=== PATIENT | female | born 1945 | race Caucasian/White ===

== ENCOUNTER → 2020-10-11 08:56 | Outpatient (CLI) | payer MEDICARE, OTHER, SELFPAY ==
[2020-10-11 09:51] LABS: Hematocrit 37.1 % (36-46); Hemoglobin 12.3 g/dL (12.0-16.0); Mean Corpuscular HGB Conc 33.3 % (30-36); Mean Corpuscular Hemoglobin 30.6 PG (26-34); Mean Corpuscular Volume 91.8 fL (80-100); Platelet Count 225 X10^3/uL (150-400); Red Blood Cell Count 4.04 X10^6/uL (4.0-5.2); Red Cell Distribution Width 13.5 % (11.6-14.8); White Blood Cell Count 3.8 X10^3/uL (4.5-11.0)
[2020-10-11 10:08] LABS: Alanine Aminotransferase 27 IU/L (<35); Albumin Globulin Ratio 1.4 (1.0-2.8); Alkaline Phosphatase 68 U/L (38-126); Aspartate Aminotransferase 37 IU/L (14-36); BUN Creatinine Ratio 19.1 (6-22); Bilirubin Total 0.8 mg/dL (0.2-1.3); Blood Urea Nitrogen 13 mg/dL (7-17); Calcium 9.5 mg/dL (8.4-10.2); Carbon Dioxide 31 mmol/L (22-32); Chloride 104 mmol/L (98-107); Cholesterol 236 mg/dL (140-199); Estimated Glomerular Filt Rate > 60.0 mL/min (>60); Globulin 2.8 g/dL (1.7-4.1); Glucose 90 mg/dL (80-110); HDL Cholesterol 99 mg/dL (40-60); HEMOLYSIS < 15 (0-50); LDL Cholesterol Calculated 116 mg/dL (<100); Potassium 4.2 mmol/L (3.4-5.1); Sodium 135 mmol/L (137-145); Total Protein 6.8 g/dL (6.3-8.2); Triglycerides 103 mg/dL (35-150)
[2020-10-11 10:35] LABS: TSH w/ Reflex to FT4 2.99 uIU/mL (0.47-4.68)
== END ==
PROVIDERS: PCP Registered Nurse Diabetes Educator; Referring Provider Registered Nurse Diabetes Educator; Visit Provider Registered Nurse Diabetes Educator
DX: Z00.00 Encounter for general adult medical examination without abnormal findings (principal); E03.9 Hypothyroidism, unspecified; E78.5 Hyperlipidemia, unspecified
CPT/HCPCS: 36415; 80053; 80061; 84443; 85027

== ENCOUNTER → 2020-11-07 11:08 | Outpatient (CLI) | payer MEDICARE, OTHER, SELFPAY ==
--- NOTE | 2020-11-07 | DI.MG.S_ITS ---
BILATERAL DIGITAL SCREENING MAMMOGRAM 3D/2D WITH CAD: 11/07/2020 CLINICAL: Routine screening. Comparison is made to exams dated: 10/14/2019 mammogram, 03/17/2019 mammogram, and 11/17/2017 mammogram - [facility]. There are scattered fibroglandular elements in both breasts. Current study was also evaluated with a Computer Aided Detection (CAD) system. No significant masses, calcifications, or other findings are seen in either breast. There has been no significant interval change. IMPRESSION: NEGATIVE There is no mammographic evidence of malignancy. A 1 year screening mammogram is recommended. This exam was interpreted at Station ID: [id number]. NOTE: For mammograms, a report in lay terms will be sent to the patient. Approximately 15% of breast malignancies will not be visualized mammographically. In the management of a palpable breast mass, a negative mammogram must not discourage biopsy of a clinically suspicious lesion. Electronically Signed By: Derek winkler/najma:11/07/2020 12:30:44 letter sent: Normal Exam ACR BI-RADS Category 1: Negative [id number]
== END ==
PROVIDERS: PCP Registered Nurse Diabetes Educator; Referring Provider Registered Nurse Diabetes Educator; Visit Provider Registered Nurse Diabetes Educator
DX: Z12.31 Encounter for screening mammogram for malignant neoplasm of breast
CPT/HCPCS: 77063; 77067

== ENCOUNTER → 2020-12-05 10:25 | Outpatient (CLI) | payer MEDICARE, OTHER, SELFPAY | PROVIDERS: PCP Registered Nurse Diabetes Educator; Referring Provider Registered Nurse Diabetes Educator; Visit Provider Registered Nurse Diabetes Educator | DX: Z13.820 Encounter for screening for osteoporosis (principal); M85.852 Other specified disorders of bone density and structure, left thigh; Z78.0 Asymptomatic menopausal state; E07.9 Disorder of thyroid, unspecified; Z82.62 Family history of osteoporosis | CPT/HCPCS: 77080 ==

== ENCOUNTER → 2020-12-11 10:22 | Outpatient (CLI) | payer MEDICARE, OTHER, SELFPAY ==
[2020-12-13 15:16] LABS: Fecal Immunochemical Test Negative (Negative)
== END ==
PROVIDERS: PCP Registered Nurse Diabetes Educator; Referring Provider Registered Nurse Diabetes Educator; Visit Provider Registered Nurse Diabetes Educator
DX: Z12.11 Encounter for screening for malignant neoplasm of colon (principal)
CPT/HCPCS: 82274

== ENCOUNTER 2020-12-21 10:17 | Emergency (ER) | payer MEDICARE, OTHER, SELFPAY ==
[2020-12-21] VITALS (8 sets, daily range): BP systolic 148–212; BP diastolic 58–91; PULSE 60–84; RESP 14; TEMP 36.5; O2SAT 96–100; BMI 26.6
--- NOTE | 2020-12-21 10:35 | ED_ITS ---
HPI - Neuro Symptoms/Deficit General Chief Complaint: Neuro Symptoms/Deficit Stated Complaint: Possible ARTIS Time Seen by Provider: 12/21/20 10:19 Source: patient Mode of arrival: Ambulatory Limitations: no limitations History of Present Illness HPI Narrative: Patient is a 75-year-old female who is here in the emergency department today for tingling in her left hand and on the left side of her face. She states that she woke up approximately 24 hours ago with tingling in her left hand. She states that she felt like she slept on her arm wrong. She did state that the symptoms seem to come and go as the day went on. She did not have any weakness in her hand. No headache or fevers or lightheadedness or balance issues. She stated that yesterday she also noticed when she was brushing her teeth that she was having some tingling along the left side of her face. No diagnosis of high blood pressure but she does state that her blood pressure has periods of time when it seems to be elevated. Does have a history of hypothyroid and has been taking her medicines for this without any dosing changes. On Anticoagulants: No Related Data Previous Rx's Medication Instructions Recorded levothyroxine 50 mcg capsule 50 mcg PO DAILY #90 cap 11/07/20 Allergies Allergy/AdvReac Type Severity Reaction Status Date / Time phenobarbital Allergy Severe SEVERE Verified 12/21/20 10:25 HEADACHES/HALLUCINATIONS Review of Systems Constitutional Constitutional: Denies fatigue, Denies fever(s) and Denies headache(s) Eyes Eyes: Denies blurry vision, Denies change in vision and Denies diplopia ENT Ears, Nose, Mouth, and Throat: Denies dysphagia, Denies vertigo, Denies dizziness, Denies otalgia, Denies facial pain, Denies headache(s), Denies disequilibrium, Denies sinus pressure and Denies sore throat Cardiovascular Cardiovascular: Denies chest pain, Denies rapid heart rate and Denies dyspnea Respiratory Respiratory: Denies cough and Denies dyspnea Gastrointestinal Gastrointestinal: Denies abdominal pain, Denies dysphagia, Denies nausea and Denies vomiting Genitourinary Genitourinary: Denies dysuria Genitourinary: Denies dysuria Musculoskeletal Musculoskeletal: Denies arthralgias, Denies myalgias and Reports tingling Integumentary/Breasts Skin/Breast: Denies pruritus, Denies erythema and Denies rash Neurologic Neurologic: Denies vertigo, Denies dizziness, Denies headache(s), Reports tingling and Denies disequilibrium Endocrine Endocrine: Denies fatigue Hematologic/Lymphatic Hematologic/Lymphatic: Denies easy bleeding and Denies easy bruising On Anticoagulants: No Allergic/Immunologic Allergic/Immunologic: Denies urticaria Patient History Medical History (Updated 12/21/20 @ 11:48 by Dwaine Chambers DO) Dyslipidemia Hypothyroidism Social History Smoking Status: Never smoker Smoking Status: Never smoker alcohol intake frequency: holidays/special occasions only Substance Use Type: does not use Exam Initial Vital Signs Initial Vital Signs: Vital Signs Temperature 97.7 F 12/21/20 10:19 Pulse Rate 83 12/21/20 10:19 Respiratory Rate 14 12/21/20 10:19 Blood Pressure 212/91 H 12/21/20 10:19 Pulse Oximetry 99 12/21/20 10:19 Const General: cooperative, healthy appearing, comfortable and well developed Limitations: mental status not altered HENIA Head: normal to inspection and normocephalic Resp Effort & Inspection: normal respiratory effort Auscultation: clear to auscultation bilaterally Cardio Rate: regular rate Rhythm: regular rhythm GI Inspection: non-distended Palpation: soft, No firm and No tender Skin Lesions: no lesions Rashes: no rashes Neuro General: patient alert, patient awake and patient oriented x3 Cranial Nerves: CN's II-XI intact bilaterally (Subjective tingling to the left mandibular region) and sense of smell intact Cognition: normal cognition Speech: speech normal Motor: muscle tone normal throughout Extrem General: normal to inspection and capillary refill normal Psych Appearance: grossly normal and well kempt Scores GCS Callahan coma scale eye opening: Spontaneous Brianna coma scale verbal response: Orientated Callahan coma scale motor response: Obey commands Callahan coma scale total score: 15 Course Orders Ordered: ED Orders 12/21/20 10:22 EKG-12 Lead Stat 12/21/20 10:25 Complete Blood Count AUTO DIFF Stat Comprehensive Metabolic Panel Stat Lipase Stat Thyroid Stimulating Hormone Stat Troponin & CK Cardiac Panel Stat 12/21/20 10:34 CT head/brain wo con Stat Vital Signs Vital signs: Vital Signs - 8 hr 12/21/20 10:19 12/21/20 10:21 12/21/20 10:22 Temperature 97.7 F Pulse Rate 83 84 Respiratory Rate 14 Blood Pressure 212/91 H 212/91 H Pulse Oximetry 99 98 96 12/21/20 10:30 12/21/20 10:31 12/21/20 10:49 Temperature Pulse Rate 65 70 60 Respiratory Rate Blood Pressure 180/74 H 162/71 H Pulse Oximetry 98 98 96 12/21/20 11:00 Temperature Pulse Rate 60 Respiratory Rate Blood Pressure 148/58 H Pulse Oximetry 97 MDM - Neuro Symptoms/Deficit Lab Data Attestation: I reviewed the patient's lab results. Result diagrams: 12/21/20 10:25 12/21/20 10:25 Labs: Lab Results 12/21/20 12/21/20 12/21/20 Range/Units 10:25 10:25 10:25 WBC 5.2 (4.5-11.0) X10^3/uL RBC 4.44 (4.0-5.2) X10^6/uL Hgb 13.3 (12.0-16.0) g/dL Hct 40.4 (36-46) % MCV 91.0 (80-100) fL MCH 30.0 (26-34) PG MCHC 32.9 (30-36) % RDW 13.2 (11.6-14.8) % Plt Count 249 (150-400) X10^3/uL Neut % (Auto) 75.6 H (50-75) % Lymph % (Auto) 15.4 L (25-40) % Nuckolls % (Auto) 6.1 (3-14) % Eos % (Auto) 2.2 (2-4) % Baso % (Auto) 0.7 (0-2) % Neut # (Auto) 3900 (1349-4126) /uL Lymph # (Auto) 800 L (2341-7260) /uL Nuckolls # (Auto) 300 (0-900) /uL Eos # (Auto) 100 (0-450) /uL Baso # (Auto) 0 (0-100) /uL Sodium 137 (137-145) mmol/L Potassium 4.3 (3.4-5.1) mmol/L Chloride 105 (98-107) mmol/L Carbon Dioxide 30 (22-32) mmol/L BUN 12 (7-17) mg/dL Creatinine 0.67 (0.52-1.04) mg/dL Estimated GFR > 60.0 (>60) mL/min BUN/Creatinine Ratio 17.9 (6-22) Glucose 101 (80-110) mg/dL Calcium 9.6 (8.4-10.2) mg/dL Total Bilirubin 0.4 (0.2-1.3) mg/dL AST 38 H (14-36) IU/L ALT 25 (<35) IU/L Alkaline Phosphatase 69 (38-126) U/L Total Creatine Kinase 123 (30-135) U/L CK-MB (CK-2) 1.72 (<2.37) ng/mL CK-MB (CK-2) Rel Index 1.4 L (1.5-5.0) % Troponin I < 0.012 (0.01-0.034) ng/mL Total Protein 7.6 (6.3-8.2) g/dL Albumin 4.5 (3.5-5.0) g/dL Globulin 3.1 (1.7-4.1) g/dL Albumin/Globulin Ratio 1.5 (1.0-2.8) Lipase 84 (23-300) U/L TSH 2.07 (0.47-4.68) uIU/mL Imaging Data CT scan - head: Radiologist's Impression: [address] [id number] Scan ReportSigned Patient: Tricia Francis IMR#: [id number]: 6Acct:[id number]/Sex: 75 / FDate of Service: 12/21/20Loc: EDAccession Number: [id number] Procedure: CT head/brain wo con Ordering Provider: Dwaine Chambers D.O. PROCEDURE: CT HEAD/BRAIN WO CON INDICATIONS: L sided hand and face tingling TECHNIQUE: Noncontrast 4.5 mm thick angled axial sections acquired from the foramen magnum to the vertex, with coronal and sagittal reformats. For radiation dose reduction, the following was used: automated exposure control, adjustment of mA and/or kV according to patient size. COMPARISON: None. FINDINGS: Image quality: Excellent. CSF spaces: Basal cisterns are patent. No extra-axial fluid collections. The ventricles are symmetric in size and shape. Brain: No acute intracranial hemorrhage or mass effect. There is cerebral volume loss for age, with resultant ventricular and sulcal prominence. There are periventricular and deep white matter chronic small vessel ischemic changes. There is intracranial internal carotid artery atherosclerosis. Skull and face: Calvarium and visualized facial bones appear intact, without suspicious lesions. Sinuses: Visualized sinuses and mastoids are clear. IMPRESSION: No acute intracranial abnormality. Mild age related cerebral volume loss and chronic microvascular ischemic changes. Dictated by: Lang Laurent M.D. on 12/21/2020 at 10:51 Approved by: Lang Laurent M.D. on 12/21/2020 at 10:54 ECG Data Attestation: I personally reviewed and interpreted this ECG as follows: Prior ECG tracings: not available for review Interpretation: Sinus rhythm Ventricular rate is 68 Normal axis Normal QRS Normal QTC No ST T wave changes MDM Narrative Medical decision making narrative: Patient's symptoms today seem to be isolated as tingling along the left side of her jaw and also around her left thumb. The rest of her neurologic exam is unremarkable. I have low suspicion for CVA. I do have low suspicion for TIA. If this is worse case scenario and was a TIA her ABCD2 score is low risk. I feel we can hold on further workup for now and have patient follow-up with her primary doctor for further evaluation. I did discuss this with the patient. We did discuss return precautions. She expressed understanding and agreement. Discharge Plan Departure Patient Disposition: Home Clinical Impression: Facial paresthesia, Hand paresthesia Instructions: DI for Numbness/Tingling Activity Restrictions/Additional Instructions: Continue all of your medications as directed. Also recommend that you start taking a daily aspirin until your instructed to stop by your primary provider. I recommend that today you contact your primary provider for a follow-up and to discuss the indications for further workup. Return to the emergency department for any new or worsening symptoms Prescriptions: No Action levothyroxine 50 mcg capsule 50 mcg PO DAILY Qty: 90 RF: 3 Referrals: Godfrey Fallon ARNP [Primary Care Provider] -
[2020-12-21 10:38] LABS: Add Manual Diff / Slide Review NO; Basophils Absolute Auto 0 /uL (0-100); Basophils Percent Auto 0.7 % (0-2); Eosinophils Absolute Auto 100 /uL (0-450); Eosinophils Percent Auto 2.2 % (2-4); Hematocrit 40.4 % (36-46); Hemoglobin 13.3 g/dL (12.0-16.0); Lymphocytes Absolute Auto 800 /uL (1100-4500); Lymphocytes Percent Auto 15.4 % (25-40); Mean Corpuscular HGB Conc 32.9 % (30-36); Monocytes Absolute Auto 300 /uL (0-900); Monocytes Percent Auto 6.1 % (3-14); Neutrophils Absolute Auto 3900 /uL (1500-7000); Neutrophils Percent Auto 75.6 % (50-75); Platelet Count 249 X10^3/uL (150-400); Red Blood Cell Count 4.44 X10^6/uL (4.0-5.2); Red Cell Distribution Width 13.2 % (11.6-14.8); White Blood Cell Count 5.2 X10^3/uL (4.5-11.0)
[2020-12-21 10:53] LABS: Alanine Aminotransferase 25 IU/L (<35); Albumin 4.5 g/dL (3.5-5.0); Albumin Globulin Ratio 1.5 (1.0-2.8); Alkaline Phosphatase 69 U/L (38-126); Aspartate Aminotransferase 38 IU/L (14-36); BUN Creatinine Ratio 17.9 (6-22); Bilirubin Total 0.4 mg/dL (0.2-1.3); Blood Urea Nitrogen 12 mg/dL (7-17); Calcium 9.6 mg/dL (8.4-10.2); Carbon Dioxide 30 mmol/L (22-32); Chloride 105 mmol/L (98-107); Creatine Kinase 123 U/L (30-135); Estimated Glomerular Filt Rate > 60.0 mL/min (>60); Globulin 3.1 g/dL (1.7-4.1); Glucose 101 mg/dL (80-110); HEMOLYSIS < 15 (0-50); Lipase 84 U/L (23-300); Potassium 4.3 mmol/L (3.4-5.1); Sodium 137 mmol/L (137-145); Total Protein 7.6 g/dL (6.3-8.2)
[2020-12-21 11:03] LABS: Troponin I < 0.012 ng/mL (0.01-0.034)
[2020-12-21 11:07] LABS: CKMB % Relative Index 1.4 % (1.5-5.0); Creatine Kinase MB 1.72 ng/mL (<2.37)
[2020-12-21 11:30] LABS: Thyroid Stimulating Hormone 2.07 uIU/mL (0.47-4.68)
== END 2020-12-21 11:56 | disposition home or self-care (01) ==
LOC: ED 11:56
PROVIDERS: Emergency Provider Emergency Medicine; PCP Registered Nurse Diabetes Educator
DX: R20.2 Paresthesia of skin (principal); E03.9 Hypothyroidism, unspecified; E78.5 Hyperlipidemia, unspecified; R07.9 Chest pain, unspecified
CPT/HCPCS: 36415; 70450; 80053; 82550; 82553; 83690; 84443; 84484; 85025; 93005; 93010; 99284

== ENCOUNTER → 2020-12-28 08:52 | Outpatient (CLI) | payer MEDICARE, OTHER, SELFPAY ==
[2020-12-28 09:50] LABS: Add Manual Diff / Slide Review NO; Basophils Absolute Auto 100 /uL (0-100); Basophils Percent Auto 1.4 % (0-2); Eosinophils Absolute Auto 200 /uL (0-450); Hematocrit 38.1 % (36-46); Hemoglobin 12.4 g/dL (12.0-16.0); Lymphocytes Absolute Auto 1100 /uL (1100-4500); Lymphocytes Percent Auto 29.3 % (25-40); Mean Corpuscular HGB Conc 32.6 % (30-36); Mean Corpuscular Hemoglobin 29.6 PG (26-34); Mean Corpuscular Volume 90.8 fL (80-100); Monocytes Absolute Auto 300 /uL (0-900); Monocytes Percent Auto 7.2 % (3-14); Neutrophils Absolute Auto 2100 /uL (1500-7000); Neutrophils Percent Auto 56.1 % (50-75); Platelet Count 246 X10^3/uL (150-400); Red Blood Cell Count 4.19 X10^6/uL (4.0-5.2); Red Cell Distribution Width 13.2 % (11.6-14.8); White Blood Cell Count 3.7 X10^3/uL (4.5-11.0)
[2020-12-28 10:16] LABS: Alanine Aminotransferase 27 IU/L (<35); Albumin 4.1 g/dL (3.5-5.0); Albumin Globulin Ratio 1.5 (1.0-2.8); Alkaline Phosphatase 62 U/L (38-126); Aspartate Aminotransferase 35 IU/L (14-36); Bilirubin Total 0.4 mg/dL (0.2-1.3); Bilirubin Unconjugated 0.6 mg/dL (0.0-1.1); Globulin 2.8 g/dL (1.7-4.1); HEMOLYSIS < 15 (0-50); Total Protein 6.9 g/dL (6.3-8.2)
== END ==
PROVIDERS: PCP Registered Nurse Diabetes Educator; Referring Provider Registered Nurse Diabetes Educator; Visit Provider Registered Nurse Diabetes Educator
DX: D72.819 Decreased white blood cell count, unspecified (principal); D74.8 Other methemoglobinemias; R74.8 Abnormal levels of other serum enzymes
CPT/HCPCS: 36415; 80076; 85025

== ENCOUNTER → 2021-01-10 12:36 | Outpatient (CLI) | payer MEDICARE, OTHER, SELFPAY ==
--- NOTE | 2021-01-10 12:39 | DI.US.S_ITS ---
PROCEDURE: US CAROTID DOPPLER BI INDICATIONS: LEFT FACIAL NUMBNESS TECHNIQUE: Color and pulse Doppler interrogation was performed of both carotid systems, with image documentation and velocity measurements. COMPARISON: None. FINDINGS: Stenosis calculations are based on SRU (Society of Radiologists in Ultrasound) criteria. The flow velocities and the arterial waveforms are normal within both carotid arterial systems. The estimated degree of internal carotid artery stenosis is less than 50%. Antegrade flow is confirmed within both vertebral arteries. IMPRESSION: No hemodynamically significant stenosis is seen. Dictated by: Denny August M.D. on 01/10/2021 at 12:01 Approved by: Denny August M.D. on 01/10/2021 at 12:03
--- NOTE | 2021-01-10 12:39 | DI.MRI.S_ITS ---
PROCEDURE: MR STROKE Pre- and post-contrast brain MRI, non-contrast brain MR angiogram, pre- and postcontrast neck MR angiogram INDICATIONS: Anesthesia of skin,Hyperlipidemia, unspecified TECHNIQUE: Brain: Noncontrast axial T1 spin echo, axial T2 fast spin echo, sagittal and axial FLAIR, coronal T2 fast spin echo, axial gradient echo, axial diffusion and ADC through the brain. After the administration of contrast, axial 3D VIBE of the cranial vasculature and brain. Brain MRA: Non-contrast 3-D time of flight MR angiogram, with multiple etafetm-tnznzxxom-eevumhtlrc (MIP) reformats performed. Neck MRA: Axial and sagittal TruFISP through the neck. Coronal dynamic MR angiogram during administration of contrast in the arterial and venous phases, with 3-dimenstional wncgyex-sjeqirite-sphkwhhdln (MIP) reformats constructed from subtraction images. COMPARISON: [facility], US, US CAROTID DOPPLER BI, 01/10/2021, 12:47. [facility], CT, CT HEAD/BRAIN WO CON, 12/21/2020, 10:41. FINDINGS: Image quality: Excellent. BRAIN: CSF spaces: Ventricles are normal in size and shape. Basal cisterns are patent. No extra-axial fluid collections. Brain: No intracranial bleeds or mass effects. Saenz-white matter interface is normal. Diffusion weighted images show no acute ischemic insults. Brainstem appears normal. Brain parenchymal volume loss is seen. Chronic small vessel ischemic change can be seen. There is an apparent remote infarction involving the deep white matter of the left frontal lobe, as on series 20 images 15 and 16. Normal intravascular flow voids are present. No abnormal intracranial enhancement. Relatively prominent perivascular spaces are noted. Skull and face: Calvarial marrow signal is normal. Orbits appear normal. Sinuses: Sinuses and mastoids are clear. BRAIN MR ANGIOGRAM: Anterior circulation: Intracranial internal carotid arteries are normal in size and enhancement. The flow within the paired anterior cerebral arteries is normal and symmetric. The flow within the middle cerebral arteries is normal and symmetric. The anterior communicating artery is only faintly seen. No stenoses, occlusions, or aneurysms. Posterior circulation: The visualized portions of the vertebral arteries demonstrate normal caliber, and join to form a normal appearing basilar artery. The flow within the posterior cerebral arteries is normal and symmetric. No stenoses, occlusions, or aneurysms. NECK MR ANGIOGRAM: Carotids: Great vessels demonstrate a conventional anatomy as they arise from the aortic arch. The origins of the common carotid arteries appear patent. The calibers and courses of both common carotid arteries are normal. The bifurcation regions appear normal bilaterally. The internal carotid arteries demonstrate normal caliber. There is medialization seen of both internal carotid arteries, as on series 34 image 1. Posterior circulation: The origins of the vertebral arteries appear patent. More superior portions of both vertebral arteries demonstrate normal course and caliber, and join to form a normal appearing basilar artery. Miscellaneous: Subclavian arteries appear patent. Pre-contrast images through the neck show no soft tissue abnormalities. IMPRESSION: BRAIN MRI: No findings of acute or subacute infarction can be seen. Apparent small remote infarction involving the deep white matter of the left frontal lobe. No masses or abnormal enhancement can be seen. Note is made of age-appropriate brain parenchymal volume loss and chronic small vessel ischemic changes. BRAIN MR ANGIOGRAM: No significant intracranial arterial abnormality is seen. NECK MR ANGIOGRAM: Within the arteries of the neck, no hemodynamically significant stenosis can be seen. Incidental note is made of medialization of the internal carotid arteries. Dictated by: Denny August M.D. on 01/10/2021 at 13:01 Approved by: Denny August M.D. on 01/10/2021 at 13:05
== END ==
PROVIDERS: PCP Registered Nurse Diabetes Educator; Referring Provider Registered Nurse Diabetes Educator; Visit Provider Registered Nurse Diabetes Educator
DX: R20.0 Anesthesia of skin (principal); E78.5 Hyperlipidemia, unspecified; R20.2 Paresthesia of skin
CPT/HCPCS: 70548; 70553; 93880

== ENCOUNTER → 2021-02-22 12:59 | Outpatient (CLI) | payer MEDICARE, OTHER, SELFPAY ==
--- NOTE | 2021-02-22 13:04 | DIET.PN ---
Dietary Progress Note Assessment: 75y F attending nutrition visit for help with dietary strategies to manage her HLD. Imaging shows previous white matter infarct c reccs for asprin and statin therapy to get LDL <70. Pt would like to try dietary changes first to see if she can meet the goal. Pt lives on [address], is mostly plant-based and gluten-free, will eat salmon or anything served at a friends home, but avoids most dairy and meat. Pt has restless leg syndrome (calves and bottoms of feet) difficulty getting comfortable, which causes her to lose sleep. HT: 5'7 WT: 174# UBW: 170-250# BMI: 27.2 Pt has hx of [place] dieting and has been up to 250# several times, has tried: Babita, Asha Iniguez, Nutrisystem, Arbmila. Labs: TC 236 H, LDL 116 H, HDL 99 Usual Day: wakes 6am usually coffee c oatmilk gets tired of oatmeal c bananas and blueberries, cinnamon, coriander powder, flaxseeds, nut butter sometimes fried egg c avocado gf toast c nut butter Lunch: bowl of soup, 1/2 GF vegetarian pizza from [employer] snacker: almonds and cashews c raisins Dinners: salmon c sweet potato, green salad or salad dressings tries to avoid snacking after dinner chamomile tea in evenings before bed Pt uses earth balance butter and eats cashew based vegan cheeses. sporadic use of wine and gin and tonics (1 gin and tonic per week, 1 glass wine often turns into 2) Physical Activity: pt walks quite a bit, 4mi most days per week with her dog Pt has big garden but does not know how to cook many of the things she grows such as beet greens. Nutrition Diagnosis: altered nutrition related laboratory values (TC, LDL) r/t inadequate intake soluble fiber aeb TC 236 H, LDL 116 H, pt has imaging showing deep white matter infarct, pt requesting information on improving diet to manage HLD. Interventions: 1. To support pts weight stability and assist her in finding regular dietary pattern, introduced pt to hunger scale. Pt will eat at 3 and stop at 8 and will reflect on times she eats at a 5 to find non-food ways to satisfy the situation. 2. To lower LDL cholesterol, pt will continue to follow a mostly plant-based diet avoiding most animal products including meat, dairy, and eggs, pt will continue to consume salmon. 3. To lower LDL cholesterol, educated pt on role of soluble fiber in HLD management. Using handouts, identified high soluble fiber foods pt enjoys and collaborated on ways to fit these into her daily diet. Pt will consume bryanna seeds in oatmeal, hummus c raw veggies, lentil soup, and use beans more often as a protein source rather than beyond burgers with a goal of 25-30g/d. Pt will log her intake for a few days to identify her current fiber levels in order to see where she can add more and how much. 4. Provided pt copy of Dietary Interventions for HLD pamphlet for her review. Diet Order: Low Saturated Fat/High Soluble Fiber diet EER: 25-30g Fiber daily
== END ==
PROVIDERS: PCP Registered Nurse Diabetes Educator; Referring Provider Registered Nurse Diabetes Educator; Visit Provider Registered Nurse Diabetes Educator
DX: E78.5 Hyperlipidemia, unspecified (principal); Z71.3 Dietary counseling and surveillance; Z68.27 Body mass index [BMI] 27.0-27.9, adult
CPT/HCPCS: 97802

== ENCOUNTER → 2022-02-17 09:07 | Outpatient (CLI) | payer MEDICARE, OTHER, SELFPAY ==
--- NOTE | 2022-02-17 | DI.RAD.S_ITS ---
PROCEDURE: XR KNEE RT 3V INDICATIONS: Pain in right knee TECHNIQUE: 3 views of the knee were acquired. COMPARISON: None. FINDINGS: Bones: No fractures or dislocations. No suspicious bony lesions. Moderate medial and patellofemoral compartment osteoarthritis. Mild lateral compartment osteoarthritis. Soft tissues: No joint effusion. No suspicious soft tissue calcifications. IMPRESSION: Right knee tricompartmental osteoarthritis. Dictated by: Myesha Hamm MD, PhD on 02/17/2022 at 14:47 Approved by: Myesha Hamm MD, PhD on 02/17/2022 at 14:49
== END ==
PROVIDERS: PCP Physician Assistant; Referring Provider Physician Assistant; Visit Provider Physician Assistant
DX: M25.561 Pain in right knee (principal); M17.11 Unilateral primary osteoarthritis, right knee
CPT/HCPCS: 73562

== ENCOUNTER 2022-12-30 18:07 | Emergency (ER) | payer MEDICARE, OTHER, SELFPAY ==
[2022-12-30 18:37] VITALS: BP 186/90; PULSE 70; RESP 18; TEMP 36.2; O2SAT 100; BMI 27.1
--- NOTE | 2022-12-30 18:47 | DI.RAD.S_ITS ---
PROCEDURE: XR CHEST 1V INDICATIONS: chest pain TECHNIQUE: One view of the chest was acquired. COMPARISON: None. FINDINGS: Surgical changes and devices: None. Lungs and pleura: Lungs are clear. Lungs are lucent suggesting COPD. No pleural effusions or pneumothorax. Mediastinum: Mediastinal contours appear normal. Heart size is normal. Bones and chest wall: No suspicious bony lesions. Overlying soft tissues appear unremarkable. IMPRESSION: No acute cardiopulmonary disease. Dictated by: Henry Smith M.D. on 12/30/2022 at 19:58 Approved by: Henry Smith M.D. on 12/30/2022 at 19:58
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
[2022-12-30 19:59] LABS: Add Manual Diff / Slide Review NO; Basophils Absolute Auto 0 /uL (0-100); Basophils Percent Auto 0.7 % (0-2); Eosinophils Absolute Auto 100 /uL (0-450); Eosinophils Percent Auto 2.3 % (2-4); Hematocrit 36.7 % (36-46); Hemoglobin 12.3 g/dL (12.0-16.0); Lymphocytes Absolute Auto 1200 /uL (1100-4500); Lymphocytes Percent Auto 26.5 % (25-40); Mean Corpuscular HGB Conc 33.6 % (30-36); Mean Corpuscular Hemoglobin 30.6 PG (26-34); Mean Corpuscular Volume 90.8 fL (80-100); Monocytes Absolute Auto 300 /uL (0-900); Monocytes Percent Auto 6.5 % (3-14); Neutrophils Absolute Auto 3000 /uL (1500-7000); Platelet Count 226 X10^3/uL (150-400); Red Blood Cell Count 4.04 X10^6/uL (4.0-5.2); Red Cell Distribution Width 13.4 % (11.6-14.8); White Blood Cell Count 4.6 X10^3/uL (4.5-11.0)
[2022-12-30 20:02] LABS: INR 0.9 (0.9-1.3); Prothrombin Time 10.4 SECONDS (10.1-12.7)
[2022-12-30 20:04] LABS: PTT Partial Thromboplastin Tim 29 SECONDS (26-36)
[2022-12-30 20:10] LABS: Alanine Aminotransferase 28 IU/L (<35); Albumin 4.3 g/dL (3.5-5.0); Albumin Globulin Ratio 1.4 (1.0-2.8); Alkaline Phosphatase 66 U/L (38-126); Aspartate Aminotransferase 39 IU/L (14-36); BUN Creatinine Ratio 30.8 (6-22); Bilirubin Total 0.3 mg/dL (0.2-1.3); Blood Urea Nitrogen 20 mg/dL (7-17); Calcium 9.7 mg/dL (8.4-10.2); Carbon Dioxide 25 mmol/L (22-32); Chloride 102 mmol/L (98-107); Creatine Kinase 115 U/L (30-135); Estimated Glomerular Filt Rate > 60 mL/min (>60); Globulin 3.1 g/dL (1.7-4.1); Glucose 100 mg/dL (80-110); HEMOLYSIS < 15 (0-50); Lipase 131 U/L (23-300); Magnesium 2.1 mg/dL (1.6-2.3); Potassium 4.1 mmol/L (3.4-5.1); Sodium 133 mmol/L (137-145); Total Protein 7.4 g/dL (6.3-8.2)
[2022-12-30 20:22] LABS: Troponin I < 0.012 ng/mL (0.01-0.034)
[2022-12-30 20:25] LABS: CKMB % Relative Index 1.4 % (1.5-5.0)
[2022-12-30 20:27] LABS: Free T4, Direct Thyroxine 1.25 ng/dL (0.78-2.19)
--- NOTE | 2022-12-30 20:36 | ED.ANXIETY ---
HPI - Anxiety General Chief Complaint: Anxiety Stated Complaint: anxiety issue, tigh of ches, high bp Time Seen by Provider: 12/30/22 19:26 Source: patient Mode of arrival: Family Vehicle History of Present Illness HPI narrative: 77-year-old female nonsmoker with history of hypertension and hypothyroid presents for evaluation of elevated BP and feeling quite anxious. She has had significant stressors at home due to working on her computer on projects for friends and family and is feeling overwhelmed. She denies suicidal or homicidal ideation. She has felt some trouble sleeping and has had some episodes of chest pain. She noted her BP to be elevated at home yesterday. She is here with a friend wishing to be evaluated. She has good support and has been in touch with her primary care provider recently prescribed propranolol which she has the pharmacy but has yet to take. She denies nausea, vomiting or diarrhea. She denies any current chest pain or shortness of breath. She is not dizzy nor weak or lightheaded Related Data Home Medications Medication Instructions Recorded Confirmed losartan 25 mg tablet 25 mg PO DAILY 12/30/22 12/30/22 propranolol 10 mg tablet 10 mg PO 1XD 12/30/22 12/30/22 Previous Rx's Medication Instructions Recorded levothyroxine 50 mcg capsule 50 mcg PO DAILY #90 caps 01/03/21 Allergies Allergy/AdvReac Type Severity Reaction Status Date / Time phenobarbital Allergy Severe SEVERE Verified 12/30/22 18:44 HEADACHES/HALLUCINATIONS Review of Systems Review of Systems Narrative: GENERAL: See HPI HEENT: Denies sinus pain, ear pain, sore throat, difficulty swallowing, dizziness. RESPIRATORY: Denies dyspnea, cough, wheezing, hemoptysis, sputum. CARDIOVASCULAR: See HPI GASTROINTESTINAL: Denies nausea, vomiting, abdominal pain, diarrhea, constipation, melena. : Denies dysuria, frequency, incontinence, hematuria, urinary retention. MUSCULOSKELETAL: denies weakness, joint pain, or bony pain SKIN: Denies rash, skin lesions, or other NEUROLOGIC: Denies weakness, headache, numbness, change in speech, confusion, seizures, incoordination. PSYCHIATRIC: See HPI. 12 point review of systems is negative except for those stated above Patient History Medical History Dyslipidemia History of CVA (cerebrovascular accident) Hypothyroidism Osteopenia Social History Smoking Status: Never smoker Smoking Status: Never smoker alcohol intake frequency: a few times a month Substance Use Type: does not use Exam Narrative Exam Narrative: GENERAL: [77] year old patient appears stated age. Well-developed patient, in mild distress. HEAD: Atraumatic. Normocephalic. EYES: Pupils equal round and reactive. Extraocular motions intact. No scleral icterus. No injection or drainage. ENT: Nose without bleeding, purulent drainage. Throat without erythema, tonsillar hypertrophy or exudate. Airway patent. NECK: Trachea midline. Non tender CARDIOVASCULAR: Regular rate and rhythm without murmurs, gallops, or rubs. RESPIRATORY: Clear to auscultation. Breath sounds equal bilaterally. No wheezes, rales, or rhonchi. GASTROINTESTINAL: Abdomen soft, non-tender, nondistended. EXTREMITIES: No edema or joint tenderness. BACK: Nontender without deformity or crepitance. No flank tenderness. NEURO: AOx3. SKIN: No rash or erythema of visible areas Initial Vital Signs Initial Vital Signs: Vital Signs Temperature 97.1 F L 12/30/22 18:37 Pulse Rate 70 12/30/22 18:37 Respiratory Rate 18 12/30/22 18:37 Blood Pressure 186/90 H 12/30/22 18:37 Pulse Oximetry 100 12/30/22 18:37 Oxygen Delivery Method 12/30/22 18:37 Scores HEART Score Heart Score history: Slightly Suspicious Heart Score EKG: Normal Heart Score Age: > or = 65 years old Heart Score risk factors: 1-2 risk factors Heart Score troponin: < or = to normal limit Heart Score Total: 3 Course Orders Ordered: ED Orders 12/30/22 18:47 Consult to ECHOMETER ENGINEER - [employer] General Sales Manager Stat XR chest 1V Stat EKG-12 Lead Stat 12/30/22 19:13 Complete Blood Count AUTO DIFF Stat Comprehensive Metabolic Panel Stat Free T4, Direct Thyroxine Stat Lipase Stat Magnesium Stat Partial Thromboplastin Time Stat Prothrombin Time INR Stat TSH [Thyroid Stimulating Hormone] Stat Troponin & CK Cardiac Panel Stat Discontinued Medications Aspirin (Aspirin 81 Mg Chew Tab) 324 mg PO NOW ONE Stop: 12/30/22 18:48 Last Admin: 12/30/22 19:38 Dose: Not Given Documented By: SAMI Vital Signs Vital signs: Vital Signs - 8 hr 12/30/22 18:37 Temperature 97.1 F L Pulse Rate 70 Respiratory Rate 18 Blood Pressure 186/90 H Pulse Oximetry 100 Oxygen Delivery Method Room Air MDM - Anxiety Lab Data 12/30/22 19:13 12/30/22 19:13 Labs: Lab Results 12/30/22 12/30/22 12/30/22 Range/Units 19:13 19:13 19:13 WBC 4.6 (4.5-11.0) X10^3/uL RBC 4.04 (4.0-5.2) X10^6/uL Hgb 12.3 (12.0-16.0) g/dL Hct 36.7 (36-46) % MCV 90.8 (80-100) fL MCH 30.6 (26-34) PG MCHC 33.6 (30-36) % RDW 13.4 (11.6-14.8) % Plt Count 226 (150-400) X10^3/uL Neut % (Auto) 64.0 (50-75) % Lymph % (Auto) 26.5 (25-40) % Carlton % (Auto) 6.5 (3-14) % Eos % (Auto) 2.3 (2-4) % Baso % (Auto) 0.7 (0-2) % Neut # (Auto) 3000 (2058-5541) /uL Lymph # (Auto) 1200 (0192-3267) /uL Carlton # (Auto) 300 (0-900) /uL Eos # (Auto) 100 (0-450) /uL Baso # (Auto) 0 (0-100) /uL PT 10.4 (10.1-12.7) SECONDS INR 0.9 (0.9-1.3) APTT 29 (26-36) SECONDS Sodium 133 L (137-145) mmol/L Potassium 4.1 (3.4-5.1) mmol/L Chloride 102 (98-107) mmol/L Carbon Dioxide 25 (22-32) mmol/L BUN 20 H (7-17) mg/dL Creatinine 0.65 (0.52-1.04) mg/dL Estimated GFR > 60 (>60) mL/min BUN/Creatinine Ratio 30.8 H (6-22) Glucose 100 (80-110) mg/dL Calcium 9.7 (8.4-10.2) mg/dL Magnesium 2.1 (1.6-2.3) mg/dL Total Bilirubin 0.3 (0.2-1.3) mg/dL AST 39 H (14-36) IU/L ALT 28 (<35) IU/L Alkaline Phosphatase 66 (38-126) U/L Total Creatine Kinase 115 (30-135) U/L CK-MB (CK-2) 1.60 (<2.37) ng/mL CK-MB (CK-2) Rel Index 1.4 L (1.5-5.0) % Troponin I < 0.012 (0.01-0.034) ng/mL Total Protein 7.4 (6.3-8.2) g/dL Albumin 4.3 (3.5-5.0) g/dL Globulin 3.1 (1.7-4.1) g/dL Albumin/Globulin Ratio 1.4 (1.0-2.8) Lipase 131 (23-300) U/L TSH (0.47-4.68) uIU/mL Free T4 (0.78-2.19) ng/dL 12/30/22 Range/Units 19:13 WBC (4.5-11.0) X10^3/uL RBC (4.0-5.2) X10^6/uL Hgb (12.0-16.0) g/dL Hct (36-46) % MCV (80-100) fL MCH (26-34) PG MCHC (30-36) % RDW (11.6-14.8) % Plt Count (150-400) X10^3/uL Neut % (Auto) (50-75) % Lymph % (Auto) (25-40) % Carlton % (Auto) (3-14) % Eos % (Auto) (2-4) % Baso % (Auto) (0-2) % Neut # (Auto) (3194-9387) /uL Lymph # (Auto) (3835-9909) /uL Carlton # (Auto) (0-900) /uL Eos # (Auto) (0-450) /uL Baso # (Auto) (0-100) /uL PT (10.1-12.7) SECONDS INR (0.9-1.3) APTT (26-36) SECONDS Sodium (137-145) mmol/L Potassium (3.4-5.1) mmol/L Chloride (98-107) mmol/L Carbon Dioxide (22-32) mmol/L BUN (7-17) mg/dL Creatinine (0.52-1.04) mg/dL Estimated GFR (>60) mL/min BUN/Creatinine Ratio (6-22) Glucose (80-110) mg/dL Calcium (8.4-10.2) mg/dL Magnesium (1.6-2.3) mg/dL Total Bilirubin (0.2-1.3) mg/dL AST (14-36) IU/L ALT (<35) IU/L Alkaline Phosphatase (38-126) U/L Total Creatine Kinase (30-135) U/L CK-MB (CK-2) (<2.37) ng/mL CK-MB (CK-2) Rel Index (1.5-5.0) % Troponin I (0.01-0.034) ng/mL Total Protein (6.3-8.2) g/dL Albumin (3.5-5.0) g/dL Globulin (1.7-4.1) g/dL Albumin/Globulin Ratio (1.0-2.8) Lipase (23-300) U/L TSH 1.61 (0.47-4.68) uIU/mL Free T4 1.25 (0.78-2.19) ng/dL MDM Narrative Medical decision making narrative: CC: 77F feeling anxious, overwhelmed at home. No SI/HI Complicating co-morbidities: age, HTN Data collected from: patient Medical records reviewed: multiple prior PCP visits Differential considered, but not limited to: anxiety, electrolyte problem, thyroid abnormality, vs. other Exam documented above, pertinent findings include: AOx3, no neuro findings. HRRR, LCTAB Lab Test results independently reviewed as above. Pertinent findings: Independently reviewed EKG as above (NSR rate 62, no ectopy, ST elevations/depressions, T wave abnormalities) Imaging studies independently reviewed: NAP Scores Used: HEART 3 Discussion: 77-year-old female feeling anxious without suicidal or homicidal ideation can contract for safety has good support. History and physical exam are reassuring no lab abnormalities, EKG nonischemic and chest x-ray clear. Patient did have some elevated blood pressure here but was asymptomatic, she has a prescription for propranolol waiting which she intends to take. She is given extensive return precautions, questions answered to her apparent satisfaction Disposition: see below, along with detailed discharge instructions that have been reviewed with patient as well as indications for ED re-evaluation and additional outpatient follow up Discharge Plan Departure Patient Disposition: Home Clinical Impression: Hypertension, Anxiety Instructions: High Blood Pressure, DI for Anxiety -- Adult Activity Restrictions/Additional Instructions: *You have been diagnosed with [anxiety and hypertension. As we discussed your history and physical exam are reassuring, labs show no significant abnormalities and your EKG has no significant findings.] *What to do: *Please continue to take your regular medications as directed. *Please follow up with your primary care provider in 2-3 days, call for an appointment. Let them know you were seen in the Emergency Department and that we ask that you be seen in follow up. We will electronically transmit a record of today's note if your PCP is in our system *If you do not have a primary care provider please contact the [facility] Resource line at [phone]. They will ask some questions about your medical history and help get you set up with a doctor in the community. *Return to Emergency Department if you should have any new, worsening or concerning symptoms, such as [fever greater than 101 F, shaking chills, worsening pain, persistent vomiting or other bothersome symptoms] Prescriptions: No Action levothyroxine 50 mcg capsule 50 mcg PO DAILY Qty: 90 3RF losartan 25 mg tablet 25 mg PO DAILY Label Comments: Take 1 tablet (25 mg) by mouth daily. propranolol 10 mg tablet 10 mg PO 1XD Label Comments: has not picked script yet Referrals: Ines Bee PA-C [Primary Care Provider] - Stand Alone Forms: Patient Portal/API
[2022-12-30 20:40] LABS: Thyroid Stimulating Hormone 1.61 uIU/mL (0.47-4.68)
--- NOTE | 2022-12-30 20:44 | PC.NURSE ---
Dr. Caruso discontinued orders. Pt declined to wait for formal discharge instructions. Dr. Caruso gave verbal instructions. Anxious to get to [place]. [place]/warm/dry. Denies discomfort. States she feels improved. Home w/ friend driving.
== END 2022-12-30 20:46 | disposition home or self-care (01) ==
PROVIDERS: Emergency Provider Emergency Medicine; PCP Physician Assistant
DX: I10 Essential (primary) hypertension (principal); F41.9 Anxiety disorder, unspecified; R07.9 Chest pain, unspecified
CPT/HCPCS: 36415; 71045; 80053; 82550; 82553; 83690; 83735; 84439; 84443; 84484; 85025; 85610; 85730; 93005; 99283; 99284

== ENCOUNTER → 2023-02-24 11:32 | Outpatient (CLI) | payer MEDICARE, OTHER, SELFPAY ==
--- NOTE | 2023-02-24 11:34 | DI.MG.S_ITS ---
BILATERAL DIGITAL SCREENING MAMMOGRAM 3D/2D WITH CAD: 02/24/2023 CLINICAL: Routine screening. Comparison is made to exams dated: 11/07/2020 mammogram - [facility], 03/17/2019 mammogram, and 11/17/2017 mammogram - [facility]. There are scattered areas of fibroglandular density in both breasts (category b / 25%-50% glandular tissue). Current study was also evaluated with a Computer Aided Detection (CAD) system. No significant masses, calcifications, or other findings are seen in either breast. There has been no significant interval change. IMPRESSION: NEGATIVE There is no mammographic evidence of malignancy. A 1 year screening mammogram is recommended. Based on the Tyrer Cuzick model (a risk assessment model) the patient's lifetime risk is 3.3% and her 10 year risk is 0.0%. According to the ACR, ACS, and NCCN guidelines, an annual breast MRI exam along with mammogram is recommended if the patient's lifetime risk is 20% or greater. This exam was interpreted at Station ID: [id number]. NOTE: For mammograms, a report in lay terms will be sent to the patient. Approximately 15% of breast malignancies will not be visualized mammographically. In the management of a palpable breast mass, a negative mammogram must not discourage biopsy of a clinically suspicious lesion. Electronically Signed By: Leighton ramirez/najma:02/24/2023 13:14:32 letter sent: Normal Exam ACR BI-RADS Category 1: Negative 3341F
--- NOTE | 2023-02-24 12:07 | DI.DEXA.S_ITS ---
Referring Provider: ANNABELLE HERZOG Study: Bone densitometry was performed. Exam Date: February 24, 2023 Accession number: [id number] Bone Density: Region BMD T-score Z-score Classification AP Spine(L1-L4) 1.121 0.7 3.2 Normal Femoral Neck (Left) 0.669 -1.6 0.5 Osteopenia Total Hip (Left) 0.687 -2.1 -0.2 Osteopenia Femoral Neck (Right) 0.737 -1.0 1.1 Normal Total Hip (Right) 0.712 -1.9 0.0 Osteopenia Total Hip Mean 0.700 -2.0 -0.1 Osteopenia World Health Organization criteria for BMD impression classify patients as: Normal (T-score at or above -1.0), Osteopenia (T-score between -1.0 and -2.5), or Osteoporosis (T-score at or below -2.5). 10-year Fracture Risk(1): Major Osteoporotic Fracture 12% Hip Fracture 2.7% Reported Risk Factors: [place] (), Neck BMD=0.669, BMI=29.1 (1) FRAX(R) Version 3.08. Fracture probability calculated for an untreated patient. Fracture probability may be lower if the patient has received treatment. Previous Exams: -- Region Exam Age BMD T-score BMD Change BMD Change Date g/cm2 vs Baseline vs Previous -- AP Spine (L1-L4) 02/24/2023 77 1.121 0.7 0.020 (1.8%)# 0.020 (1.8%)# 12/05/2020 75 1.101 0.5 Total Hip(Left) 02/24/2023 77 0.687 -2.1 -0.005 (-0.7%)# -0.005 (-0.7%)# 12/05/2020 75 0.692 -2.1 Total Hip(Right) 02/24/2023 77 0.712 -1.9 -0.014 (-1.9%)# -0.014 (-1.9%)# 12/05/2020 75 0.726 -1.8 -- *Denotes significance at 95% confidence level, LSC for AP Spine = 0.022 g/cm2, LSC for Total Hip = 0.027 g/cm2 # Denotes dissimilar scan types or analysis methods Impression: The patient has low bone mass, based on the Left Total Hip T-score. The patient has an estimated ten-year risk of hip fracture of 2.7% and an estimated ten-year risk of major fracture of 12%, based on the WHO FRAX algorithm. No significant bone loss was observed. Discussion: BONE DENSITY IS LOW AT ONE OR MORE SKELETAL SITES. This patient's lowest T-score is low at one or more skeletal sites. It meets the World Health Organization's (WHO) criteria for ?low bone mass? (T-score between -1.0 and -2.5). The patient's 10-year risk of fracture as calculated by FRAX is less than the threshold where pharmacological therapy is recommended by the National Osteoporosis Foundation (NOF). However, all treatment decisions require clinical judgment and consideration of individual patient factors, including patient preferences, comorbidities, previous drug use, risk factors not captured in the FRAX model (e.g., frailty, falls, vitamin D deficiency, increased bone turnover, interval significant decline in bone density) and possible under or overestimation of fracture risk by FRAX. The patient should follow a healthful lifestyle (good nutrition with adequate calcium and vitamin D, and appropriate weight-bearing exercise). Follow-Up: Consider repeating this study in 2 to 3 years to reassess this patient's status, or sooner if there is some new clinical indication. Reported by: JOHN MONTES MD on 02/24/2023 12:13:00 PM.
== END ==
PROVIDERS: PCP Physician Assistant; Referring Provider Nurse Practitioner Family; Visit Provider Nurse Practitioner Family
DX: Z12.31 Encounter for screening mammogram for malignant neoplasm of breast (principal); Z78.0 Asymptomatic menopausal state
CPT/HCPCS: 77063; 77067; 77080

== ENCOUNTER → 2024-03-23 12:28 | Outpatient (CLI) | payer MEDICARE, OTHER, SELFPAY ==
--- NOTE | 2024-03-23 12:29 | DI.MG.S_ITS ---
BILATERAL DIGITAL SCREENING MAMMOGRAM 3D/2D WITH CAD: 03/23/2024 CLINICAL: Routine screening. Comparison is made to exams dated: 02/24/2023 mammogram, 11/07/2020 mammogram - [facility], and 03/17/2019 mammogram - [facility]. Both breasts are almost entirely fatty (category a/<25% glandular tissue). Current study was also evaluated with a Computer Aided Detection (CAD) system. No significant masses, calcifications, or other findings are seen in either breast. There has been no significant interval change. IMPRESSION: NEGATIVE There is no mammographic evidence of malignancy. A 1 year screening mammogram is recommended. Based on the Tyrer Cuzick model (a risk assessment model) the patient's lifetime risk is 2.0% and her 10 year risk is 0.0%. According to the ACR, ACS, and NCCN guidelines, an annual breast MRI exam along with mammogram is recommended if the patient's lifetime risk is 20% or greater. This exam was interpreted at Station ID: [id number]. NOTE: For mammograms, a report in lay terms will be sent to the patient. Approximately 15% of breast malignancies will not be visualized mammographically. In the management of a palpable breast mass, a negative mammogram must not discourage biopsy of a clinically suspicious lesion. Electronically Signed By: Lillian rojo/najma:03/23/2024 13:35:55 letter sent: Normal Exam ACR BI-RADS Category 1: Negative [id number]
== END ==
LOC: MAMMO 12:29
PROVIDERS: PCP Family Medicine; Referring Provider Family Medicine; Visit Provider Family Medicine
DX: Z12.31 Encounter for screening mammogram for malignant neoplasm of breast (principal); R92.313 Mammographic fatty tissue density, bilateral breasts
CPT/HCPCS: 77063; 77067